=== PATIENT | female | born 1955 | race Caucasian/White ===

== ENCOUNTER 2017-12-07 11:45 | Emergency (ER) | payer OTHER ==
[~2017-12-07] VITALS: Ht 160 cm; Wt 60.3 kg
[~2017-12-07 11:45] MED LIST: ANASTROZOLE1 MG; AVAPRO300 MG; AVAPRO300 MG PO; Flagyl PO; IBUPROFEN800 MG PO; INTESTINEX1 CA1 PO; MEDROLPACK PO; METHOTREXATE2.5 MG; NORVASC5 MG; NORVASC5 MG PO; ORPH100T PO; TOPROL XL50 M1; TOPROL XL50 M1 PO; ZYRTEC10 M3 PO
[2017-12-07] MEDS ORDERED: ALDACTONE50 MG PO (11:59)
== END 2017-12-07 18:49 | disposition home or self-care (01) ==
LOC: ER 11:45
DX: K57.92 Diverticulitis of intestine, part unspecified, without perforation or abscess without bleeding (principal); R10.32 Left lower quadrant pain

== ENCOUNTER 2020-06-02 09:26 | Outpatient (CLI) | payer OTHER ==
[~2020-06-02 09:26] MED LIST changes: +ALDACTONE50 MG PO
== END 2020-06-02 09:28 | disposition home or self-care (01) ==
LOC: SONOGRAMA 09:26
PROVIDERS: ATTEND Pathology Anatomic Pathology & Clinical Pathology
DX: E04.2 Nontoxic multinodular goiter (principal)

== ENCOUNTER 2020-06-17 09:04 | Emergency (ER) | payer OTHER ==
[~2020-06-17] VITALS: Ht 160 cm; Wt 63.5 kg
[2020-06-17] MEDS ORDERED: MICARDIS80 MG PO (09:17)
[2020-06-17] MEDS ORDERED: ZITHROMAX500 MG PO (12:21)
[2020-06-17] MEDS ORDERED: PYRIDIUM200 MG PO (12:21)
[2020-06-17] MEDS ORDERED: DICY20TA PO (12:37)
[2020-06-17] MEDS ORDERED: KETO10TA2 PO (12:37)
[2020-06-17] MEDS ORDERED: NORFLEX100MG PO (12:37)
[2020-06-17] MEDS ORDERED: LEVOFLOXACIN500 MG PO (12:37)
== END 2020-06-17 12:39 | disposition home or self-care (01) ==
LOC: ER 09:04
DX: B34.9 Viral infection, unspecified (principal); B96.0 Mycoplasma pneumoniae [M. pneumoniae] as the cause of diseases classified elsewhere; Z03.818 Encounter for observation for suspected exposure to other biological agents ruled out

== ENCOUNTER 2020-07-02 10:28 | Emergency (ER) | payer OTHER ==
[~2020-07-02] VITALS: Ht 160 cm; Wt 63.5 kg
[~2020-07-02 10:28] MED LIST changes: +DICY20TA PO; +KETO10TA2 PO; +LEVOFLOXACIN500 MG PO; +MICARDIS80 MG PO; +NORFLEX100MG PO; +PYRIDIUM200 MG PO; +ZITHROMAX500 MG PO
== END 2020-07-02 17:41 | disposition home or self-care (01) ==
LOC: ER 10:28
DX: K57.30 Diverticulosis of large intestine without perforation or abscess without bleeding (principal); R10.32 Left lower quadrant pain; Z03.818 Encounter for observation for suspected exposure to other biological agents ruled out